=== PATIENT | female | born 1985 | race Caucasian/White ===

== ENCOUNTER 2022-01-19 07:11 | Observation (INO) ==
[2022-01-19] MEDS ORDERED: ONDANSETRON INJ 2 MG/ML 2 ML VIAL IV STA (07:28)
[2022-01-19] MEDS ORDERED: HYDROmorphone INJ 0.5 MG/0.5 ML SYR IV STA (07:28)
[2022-01-19] MEDS ORDERED: FAMOTIDINE 20MG IV PUSH 20 MG/5 ML SYR IV STA (07:34)
--- NOTE | 2022-01-19 07:34 | Emergency Department Note ---
History of Present Illness General Chief complaint: Flank Pain Stated complaint: BURNING PAIN IN RIGHT SIDE Time Seen by Provider: 01/19/22 07:18 History of Present Illness Maximum Pain Intensity: 5 36-year-old female who presents to the emergency department with her for evaluation of persistent and worsening right upper quadrant pain. The patient was seen in the emergency department last night with similar symptoms. The patient reports that she was discharged around 1 AM, and had onset of severe pain around 5 AM this morning. She reports nausea without vomiting. She rep orts that the pain radiates into the right shoulder. The pain is slightly worsened with deep breathing. She denies chest pain, shortness of breath, fevers or chills. She denies any pain radiating into the lower or left abdomen region. The patient rates her discomfort a 5 out of 10. The patient has had the symptoms now for the past several weeks, which seems to be triggered with spicy and fatty foods. May just moved back to the [facility] from [facility] as her is in the [employer]. The family will be moving to [place] for his next assignment in 2 days (01/21/2022). Home Medications Medication Instructions Recorded Confirmed Type acetaminophen 500 mg tablet 1,000 mg PO Q6H PRN 01/19/22 01/19/22 History famotidine 20 mg tablet (Pepcid) 0 mg PO DAILY 01/19/22 01/19/22 History pantoprazole 40 mg tablet,delayed 40 mg PO DAILY 28 Days #28 tab 01/19/22 01/19/22 Rx release (Protonix) simethicone 125 mg capsule (Gas-X 0 mg PO BID 01/19/22 01/19/22 History Extra Strength) Allergies Allergy/AdvReac Type Severity Reaction Status Date / Time No Known Allergies Allergy Unverified 01/19/22 09:52 Past Med/Surg History Medical History Epigastric abdominal pain Miscarriage within last 12 months Surgical History No significant past surgical history Family History Brother Insulinoma Other Coronary heart disease Diabetes Dyslipidemia Hypertension Kidney disease Social History Smoking Status: Never smoker Hx Substance Use: No Preferred Language: Macedonian Communication Ability: Effective marital status: Current Living Situation: Spouse Feels Safe at Home: Yes Review of Systems 10 system review was performed and was negative except for pertinent positives and negatives as indicated in history of present illness Physical Exam Vital Signs Vital Signs - 24 hr 01/19/22 07:11 01/19/22 07:30 01/19/22 07:58 Temperature 36.3 C L Temperature Source Temporal Artery Scan Pulse Rate 77 Pulse Rate [Apical] 65 Pulse Rhythm Regular Pulse Rhythm [Apical] Regular Respiratory Rate 18 15 Respiratory Effort / Characteristics Non-Labored Spontaneous Respiratory Depth Normal Blood Pressure 121/84 Blood Pressure [Right Arm] 113/67 Blood Pressure Mean 96 Blood Pressure Mean [Right Arm] 82 Blood Pressure Position [Right Arm] Pulse Oximetry 98 97 97 Oxygen Delivery Method Room Air Room Air Sepsis Recent Fever Within 48 Hours No Sepsis New/Unexplained Change in Mental Status No Sepsis Action Taken by Nursing No Action Required 01/19/22 09:00 01/19/22 11:00 Temperature Temperature Source Pulse Rate Pulse Rate [Apical] 46 L 58 L Pulse Rhythm Pulse Rhythm [Apical] Regular Respiratory Rate 12 20 Respiratory Effort / Characteristics Non-Labored Spontaneous Non-Labored Respiratory Depth Normal Normal Blood Pressure Blood Pressure [Right Arm] 104/64 108/68 Blood Pressure Mean Blood Pressure Mean [Right Arm] 77 81 Blood Pressure Position [Right Arm] Lying Pulse Oximetry 96 100 Oxygen Delivery Method Room Air Room Air Sepsis Recent Fever Within 48 Hours Sepsis New/Unexplained Change in Mental Status Sepsis Action Taken by Nursing CONSTITUTIONAL: Healthy and well nourished. Patient appears in moderate discomfort. HEENT: No scleral icterus or conjunctival injection/pallor. NECK: Full active range of motion without discomfort. LYMPHATICS: No cervical chain adenopathy. RESPIRATORY: Clear to auscultation bilaterally with no wheezing, crackles, rhonchi or stridor. CARDIOVASCULAR: Regular rate and rhythm with no murmurs, rubs or gallops. GASTROINTESTINAL: Bowel sounds present in all quadrants. Patient has right upper quadrant tenderness to palpation with positive De La Cruz sign. Negative McBurney's point tenderness. Negative CVA tenderness. No abdominal rigidity, guarding or rebound. MUSCULOSKELETAL: Full range of motion of all joints without discomfort. INTEGUMENTARY: No rash or other significant dermatologic conditions noted. HEMATOLOGIC: No ecchymosis or petechiae. PSYCHIATRIC: Positive affect. NEUROLOGIC: No focal neurologic deficits noted. Course Course Patient history and physical exam were performed. Nurses notes were reviewed. Vital signs were reviewed and were normal. I also reviewed documentation, labs and [facility] imaging findings from last night, with cholelithiasis noted, and without evidence for acute cholecystitis, common bile duct dilatation or pericholecystic fluid. CT with IV contrast of the abdomen and pelvis showed constipation without any other acute findings. I also reviewed our local radiologist reading which was completed at the time of my examination of the patient, again confirming cholelithiasis without convincing evidence for cholecystitis. Our local radiologist also read the CT scan, showing no evidence for bowel obstruction, appendicitis, diverticulitis, abdominal free air or CT evidence of acute cholecystitis. Moderate fecal retention is noted. IV access was established, and labs were drawn. The patient was hydrated with a liter of normal saline, and administered IV Dilaudid, Zofran and Pepcid. Review of labs shows an elevated D-dimer of 1550. Patient is noted to have a leukopenia without evidence for left shift or bandemia. CMP shows progressively worsening elevation of the patient's total bilirubin, AST, ALT, alkaline phosphatase and lipase of 1817. Because of the patient's elevated D-dimer, I did recommend chest CT angiography, which was performed and was negative for acute cardiopulmonary findings. Some pulmonary nodules, as well as a left medial breast mass is noted. Repeat ultrasound of the right upper quadrant still does not show evidence for gallbladder wall thickening,, bile duct dil atation or pericholecystic fluid. Findings were discussed with the patient, including a possibility of a choledocholithiasis. I did recommend discussing the case further with our back filler operator on-call, with probable need for MRCP/ERCP and surgical evaluation. The patient still had adequate pain relief, and refused any analgesics. I then discussed the case further with [facility] gastroenterology (JOSEPH Ruiz) who has recommended ordering an MRCP. We were actually able to get that MRCP rather quickly, with no evidence for choledocholithiasis or other acute findings. I suspect that the patient passed a gallstone. At this point, the case was further discussed with [facility] service for further admission and management for acute pancreatitis. Explained to the patient, who was requesting that her gallbladder be removed while in [place], that the gallbladder likely would not be surgically removed with her current pancreatitis. She did voiced understanding. It is noted that the patient did have a negative COVID-19 test last evening. Case was also discussed with Dr. Rao, ED attending physician, who agrees with work-up and hospitalist management. Administered Medications Lactated Ringer's (Lr) 1,000 mls @ 115 mls/hr IV .[id number] NATASHA Stop: 02/18/22 11:44 Last Admin: 01/19/22 12:25 Dose: 115 mls/hr Documented by: [id number] Morphine Sulfate (Morphine Sulfate 4 Mg/Ml 1 Ml Carp\Vial) 3 mg IV Q4 PRN PRN Reason: Pain Stop: 02/02/22 12:31 Last Admin: 01/19/22 13:20 Dose: 3 mg Documented by: [id number] Discontinued Medications Hydromorphone HCl (Hydromorphone Inj 0.5 Mg/0.5 Ml Syr) 0.5 mg IV NOW STA Stop: 01/19/22 07:29 Last Admin: 01/19/22 07:49 Dose: 0.5 mg Documented by: [id number] Famotidine (Pepcid 20mg Iv Push) 20 mg in 5 mls @ 2.5 mls/min IV NOW STA Stop: 01/19/22 07:35 Last Admin: 01/19/22 07:47 Dose: 2.5 mls/min Documented by: [id number] Ioversol (Optiray 320 125ml) 120 ml IV ONCE ONE Stop: 01/19/22 10:00 Last Admin: 01/19/22 09:59 Dose: 120 ml Documented by: [id number] Ondansetron HCl (Ondansetron Inj 2 Mg/Ml 2 Ml Vial) 4 mg IV NOW STA Stop: 01/19/22 07:29 Last Admin: 01/19/22 07:46 Dose: 4 mg Documented by: [id number] Medical Decision Making Medical Records Attestation: I reviewed the patient's medical records. Home Medications Current Medication List: was personally reviewed by me Laboratory Data Attestation: I reviewed the patient's lab results. Result diagrams: 01/19/22 07:35 01/19/22 07:35 Lab Results 05/31/22 05/31/22 05/31/22 Range/Units 07:35 07:35 07:35 WBC 4.51 L (4.8-10.8) K/uL RBC 4.17 L (4.2-5.4) M/uL Hgb 12.9 (12.0-16.0) g/dL Hct 38.3 (37-47) % MCV 91.8 (80-100) fL MCH 30.9 (25-34) pg MCHC 33.7 (32-36) g/dL RDW Std Deviation 40.4 (36.4-46.3) fL RDW Coeff of Rasheed 11.9 (11.5-14.5) % Plt Count 198 (130-400) K/uL MPV 10.8 H (7.4-10.4) fL Immature Gran % (Auto) 0.2 % Neut % (Auto) 69.9 % Lymph % (Auto) 22.4 % Adams % (Auto) 6.0 % Eos % (Auto) 1.3 % Baso % (Auto) 0.2 % Neut # (Auto) 3.15 (1.4-6.5) K/uL Lymph # (Auto) 1.01 L (1.2-3.4) K/uL Adams # (Auto) 0.27 (0.11-0.59) K/uL Eos # (Auto) 0.06 (0-0.5) K/uL Baso # (Auto) 0.01 (0-0.2) K/uL Immature Gran # (Auto) 0.01 (0.00-0.02) K/uL D-Dimer 1550 H* (0-500) ug/L FEU Sodium 138 (136-145) mmol/L Potassium 3.8 (3.5-5.1) mmol/L Chloride 105 (98-107) mmol/L Carbon Dioxide 25 (21-32) mmol/L Anion Gap 8 (3-11) BUN 12 (6-23) mg/dl Creatinine 0.83 (0.6-1.2) mg/dl Est Cr Clr Drug Dosing 95.4 ml/min Est GFR ( Amer) 105.9 ml/min Est GFR (Non-Af Amer) 91.4 ml/min BUN/Creatinine Ratio 14.5 (10-20) Glucose 88 (70-99(Fasting)) mg/dl Calcium 9.1 (8.5-10.1) mg/dl Total Bilirubin 1.2 H D (0.2-1.0) mg/dl AST 186 H (13-39) U/L ALT 83 H (7-52) U/L Alkaline Phosphatase 131 H (34-104) U/L Troponin I High Sens < 2.3 (0-14) pg/ml Total Protein 6.8 (6.0-8.3) gm/dl Albumin 4.2 (3.4-5.0) gm/dl Globulin 2.6 (2.5-4.0) gm/dl Albumin/Globulin Ratio 1.6 (0.9-2) Lipase 1817 H (11-82) U/L Urine Color Urine Appearance (Clear) Urine pH (4.5-7.5) Ur Specific [place] (1.000-1.030) Urine Protein (Negative) Urine Glucose (UA) (Negative) Urine Ketones (Negative) Urine Blood (Negative) Urine Nitrite (Negative) Urine Bilirubin (Negative) Urine Urobilinogen (Negative) Ur Leukocyte Esterase (Negative) 01/19/22 Range/Units 10:14 WBC (4.8-10.8) K/uL RBC (4.2-5.4) M/uL Hgb (12.0-16.0) g/dL Hct (37-47) % MCV (80-100) fL MCH (25-34) pg MCHC (32-36) g/dL RDW Std Deviation (36.4-46.3) fL RDW Coeff of Rasehed (11.5-14.5) % Plt Count (130-400) K/uL MPV (7.4-10.4) fL Immature Gran % (Auto) % Neut % (Auto) % Lymph % (Auto) % Adams % (Auto) % Eos % (Auto) % Baso % (Auto) % Neut # (Auto) (1.4-6.5) K/uL Lymph # (Auto) (1.2-3.4) K/uL Adams # (Auto) (0.11-0.59) K/uL Eos # (Auto) (0-0.5) K/uL Baso # (Auto) (0-0.2) K/uL Immature Gran # (Auto) (0.00-0.02) K/uL D-Dimer (0-500) ug/L FEU Sodium (136-145) mmol/L Potassium (3.5-5.1) mmol/L Chloride (98-107) mmol/L Carbon Dioxide (21-32) mmol/L Anion Gap (3-11) BUN (6-23) mg/dl Creatinine (0.6-1.2) mg/dl Est Cr Clr Drug Dosing ml/min Est GFR ( Amer) ml/min Est GFR (Non-Af Amer) ml/min BUN/Creatinine Ratio (10-20) Glucose (70-99(Fasting)) mg/dl Calcium (8.5-10.1) mg/dl Total Bilirubin (0.2-1.0) mg/dl AST (13-39) U/L ALT (7-52) U/L Alkaline Phosphatase (34-104) U/L Troponin I High Sens (0-14) pg/ml Total Protein (6.0-8.3) gm/dl Albumin (3.4-5.0) gm/dl Globulin (2.5-4.0) gm/dl Albumin/Globulin Ratio (0.9-2) Lipase (11-82) U/L Urine Color Yellow Urine Appearance Clear (Clear) Urine pH 6.5 (4.5-7.5) Ur Specific [place] > 1.045 H (1.000-1.030) Urine Protein Negative (Negative) Urine Glucose (UA) Negative (Negative) Urine Ketones Negative (Negative) Urine Blood Negative (Negative) Urine Nitrite Negative (Negative) Urine Bilirubin Negative (Negative) Urine Urobilinogen Negative (Negative) Ur Leukocyte Esterase Negative (Negative) Imaging Data Attestation: I personally reviewed and interpreted this imaging study as follows: My Impression: My interpretation of reportable chest x-ray does not show any consolidations, pneumothorax or cardiac prominence. Gallbladder ultrasound shows cholelithiasis without evidence for collateral thickening, pericholecystic fluid or, bile duct dilatation. CT angiography of the chest was negative for pulmonary embolus, pneumonia, pneumothorax or other concerning findings. A left medial breast mass is noted, as well as multiple additional small pulmonary nodules of doubtful significance. MRCP did not show evidence for choledocholithiasis or other concerning findings. Radiologist reports were also reviewed. Radiologist's Impression: Gallbladder Ultrasound 01/19/22 07:34 ABDOMINAL ULTRASOUND, RIGHT UPPER QUADRANT HISTORY: Worsening RUQ pain. COMPARISON: Abdominal ultrasound 01/18/2022. FINDINGS: Pancreas: The pancreas demonstrates a normal echotexture. Liver: Unremarkable. Gallbladder: Multiple small gallstones. No gallbladder wall thickening. CBD: 3 mm. Right kidney: No hydronephrosis. IMPRESSION: 1. Cholelithiasis. No gallbladder wall thickening. 2. Normal liver. ACT 112: Negative or not required by law. Electronically signed by: Foreign Sainz M.D. 01/19/2022 8:52 AM Chest X-Ray 01/19/22 07:41 XR chest 1V portable CLINICAL HISTORY: RUQ abd pain radiating to R shoulder TECHNIQUE: Single frontal radiograph of the chest was obtained. Comparison: Comparison is made to chest radiograph 01/18/2022 FINDINGS: No lines and tubes are seen. The cardiomediastinal silhouette is normal. The lungs are clear. No evidence of pleural effusion or pneumothorax. IMPRESSION: No acute chest disease. ACT 112: Negative or not required by law. Electronically signed by: Kirk Arreola M.D. 01/19/2022 8:03 AM Chest CTA 01/19/22 08:45 CT angio chest PE protocol CT DOSE: 496.40 mGycm HISTORY: 36 years-old Female with PE. Acute right-sided chest pain TECHNIQUE: Multiple CTA images of the chest were obtained after the intravenous administration of 120 ml Optiray. Coronal and sagittal MIPS were obtained from the axial data set and were submitted for review. All measurements were obtained according to NASCET criteria. A dose lowering technique was utilized adhering to the principles of ALARA. COMPARISON: Chest radiograph of same day FINDINGS: CTA: Subsegmental pulmonary arterial branches are not well evaluated secondary to contrast bolus timing. 4 vessel morphology of the thoracic aortic arch. No thoracic aortic aneurysm or dissection.Heart size is normal. CT CHEST: No thyroid nodule. No lymphadenopathy. There is no pneumothorax, pleural effusio n, airspace consolidation or overt pulmonary edema. 2 mm nodule of the left upper lobe, image 228. 3 mm fissural nodule of the left lung on image 193. 3 mm nodule of the left lower lobe, image 152. There are no suspicious pulmonary nodules or masses identified. Fissural nodules of the right middle lobe measure up to 4 mm suggestive of benign lymph nodes. The central airways are patent. No acute process of the imaged upper abdomen. 1.3 cm asymmetry within the medial left breast, image 140. The bones appear intact. No acute fracture. IMPRESSION: 1. No acute intrathoracic abnormality. No pulmonary emboli. 2. Low suspicion bilateral solid pulmonary nodules measure up to 4 mm. 3. 1.3 cm asymmetry of the medial left breast. This could be correlated with mammogram ACT 112: Negative or not required by law. The above report was generated using voice recognition software. It may contain grammatical, syntax or spelling errors. Electronically signed by: Naveed Antoine M.D. 01/19/2022 10:26 AM Cholangiopancreatography MRI 01/19/22 10:45 MR MRCP CLINICAL HISTORY: Choledocholithiasis TECHNIQUE: Multiplanar multisequence MR images of the abdomen were obtained, as per MRCP protocol. . COMPARISON: None available at the time of this dictation. FINDINGS: Lower chest: No acute abnormality Liver: Unremarkable. No focal lesions are seen. Gallbladder and biliary tree: No calcified gallstones. Normal caliber wall. No intra- or extrahepatic biliary ductal dilation. Pancreas: Unremarkable, no focal lesions. Spleen: Unremarkable. Adrenals: Unremarkable. Kidneys and ureters: Unremarkable. Bowel: Unremarkable. Lymph nodes Retroperitoneal: Unremarkable. Mesenteric: Unremarkable. Peritoneum: Normal Vessels: Unremarkable. Abdominal wall: Unremarkable. Bones: Unremarkable. IMPRESSION: No evidence of acute abnormality. In particular, no evidence of choledocholithiasis. ACT 112: Negative or not required by law. Electronically signed by: Kirk Arreola M.D. 01/19/2022 12:30 PM Blood Pressure Blood Pressure Findings: Normal blood pressure MDM Narrative She presented to the emergency department with complaint of progressively worsening right upper quadrant pain radiating into the right shoulder. The patient was in the emergency department last evening, with ultrasound showing multiple gallstones, and no evidence for cholecystitis. The patient reports this morning with progressively worsening pain. The patient does have elevated labs, including total bilirubin, LFTs, alkaline phosphatase and lipase. With additional work-up provided, I do suspect that the patient did pass a gallstone, with choledocholithiasis likely cause for her worsening pain and acute pancreatitis. At this point, patient will likely need a few days for treatment of her pancreatitis. The patient will also have GI consultation while admitted, and likely will require further outpatient cholecystectomy due to cholelithiasis. Additional work-up is not suggestive of pulmonary embolus, myocardial infarction, pneumothorax, bowel obstruction or other acute intra- abdominal etiologies. Impression & Plan Choledocholithiasis, Continuous right upper quadrant pain, Breast mass, left, Pancreatitis due to biliary obstruction Discharge Plan Visit Data Chief Complaint: Flank Pain Stated Complaint: BURNING PAIN IN RIGHT SIDE ED Provider: Cameron Rao ED Midlevel Provider: Chavo Murphy Discharge Problem: Choledocholithiasis, Continuous right upper quadrant pain, Breast mass, left, Pancreatitis due to biliary obstruction Patient Disposition: Admitted As Inpatient Discharge Instructions Interventions: ED Discharge Assessment Last Done: 01/19/22 12:24 Discharge Problem: Breast mass, left Qualifiers: Breast mass location: unspecified quadrant Qualified Code(s): N63.20 - Unspecified lump in the left breast, unspecified quadrant Pancreatitis due to biliary obstruction Qualifiers: Chronicity: acute Acute pancreatitis complication: no infection or necrosis Qualified Code(s): K85.10 - Biliary acute pancreatitis without necrosis or infection
[2022-01-19 07:57] LABS: Basophils # (auto) 0.01 K/uL (0-0.2); Basophils % (auto) 0.2 %; Eosinophils # (auto) 0.06 K/uL (0-0.5); Eosinophils % (auto) 1.3 %; Hematocrit (blood only) 38.3 % (37-47); Hemoglobin 12.9 g/dL (12.0-16.0); Immature Granulocytes # (auto) 0.01 K/uL (0.00-0.02); Immature Granulocytes % (auto) 0.2 %; Lymphocytes # (auto) 1.01 K/uL (1.2-3.4); Lymphocytes % (auto) 22.4 %; Mean Corpuscular Hemoglobin 30.9 pg (25-34); Mean Corpuscular Hgb Conc 33.7 g/dL (32-36); Mean Corpuscular Volume 91.8 fL (80-100); Mean Platelet Volume 10.8 fL (7.4-10.4); Monocytes # (auto) 0.27 K/uL (0.11-0.59); Neutrophils # (auto) 3.15 K/uL (1.4-6.5); Neutrophils % (auto) 69.9 %; Platelet Count 198 K/uL (130-400); RDW Coefficient of Variation 11.9 % (11.5-14.5); RDW Standard Deviation 40.4 fL (36.4-46.3); Red Blood Count 4.17 M/uL (4.2-5.4); White Blood Count 4.51 K/uL (4.8-10.8)
--- NOTE | 2022-01-19 08:04 | XRay Report ---
XR chest 1V portable CLINICAL HISTORY: RUQ abd pain radiating to R shoulder TECHNIQUE: Single frontal radiograph of the chest was obtained. Comparison: Comparison is made to chest radiograph 01/18/2022 FINDINGS: No lines and tubes are seen. The cardiomediastinal silhouette is normal. The lungs are clear. No evid ence of pleural effusion or pneumothorax. IMPRESSION: No acute chest disease. ACT 112: Negative or not required by law. Electronically signed by: Kirk Arreola M.D. 01/19/2022 8:03 AM
[2022-01-19 08:17] LABS: D Dimer 1550 ug/L FEU (0-500)
[2022-01-19 08:23] LABS: Troponin I High Sensitivity < 2.3 pg/ml (0-14)
--- NOTE | 2022-01-19 08:53 | Ultrasound Report ---
ABDOMINAL ULTRASOUND, RIGHT UPPER QUADRANT HISTORY: Worsening RUQ pain. COMPARISON: Abdominal ultrasound 01/18/2022. FINDINGS: Pancreas: The pancreas demonstrates a normal echotexture. Liver: Unremarkable. Gallbladder: Multiple small gallstones. No gallbladder wall thickening. CBD: 3 mm. Right kidney: No hydronephrosis. IMPRESSION: 1. Cholelithiasis. No gallbladder wall thickening. 2. Normal liver. ACT 112: Negative or not required by law. Electronically signed by: Foreign Sainz M.D. 01/19/2022 8:52 AM
--- NOTE | 2022-01-19 08:56 | Electrocardiogram Report ---
Test Reason : Blood Pressure : / mmHG Vent. Rate : 062 BPM Atrial Rate : 062 BPM P-R Int : 184 ms QRS Dur : 090 ms QT Int : 430 ms P-R-T Axes : 069 082 061 degrees QTc Int : 436 ms Normal sinus rhythm Left atrial enlargement Incomplete right bundle branch block Low voltage QRS Borderline ECG No previous ECGs available Confirmed by Liu Leung ([id number]) on 01/19/2022 8:56:18 AM Referred By: REFERRED SELF Confirmed By:Liu Leung
[2022-01-19 09:29] LABS: Alanine Aminotransferase 83 U/L (7-52); Albumin Globulin Ratio 1.6 (0.9-2); Albumin Level 4.2 gm/dl (3.4-5.0); Alkaline Phosphatase 131 U/L (34-104); Anion Gap 8 (3-11); Aspartate Aminotransferase 186 U/L (13-39); BUN Creatinine Ratio 14.5 (10-20); Bilirubin,Total 1.2 mg/dl (0.2-1.0); Blood Urea Nitrogen 12 mg/dl (6-23); Calcium 9.1 mg/dl (8.5-10.1); Carbon Dioxide 25 mmol/L (21-32); Chloride 105 mmol/L (98-107); Creatinine Clr Calc Pharmacy 95.4 ml/min; Est GFR (African American) 105.9 ml/min; Est GFR (Non-African American) 91.4 ml/min; Globulin 2.6 gm/dl (2.5-4.0); Glucose 88 mg/dl (70-99(Fasting)); Potassium 3.8 mmol/L (3.5-5.1); Sodium 138 mmol/L (136-145); Total Protein 6.8 gm/dl (6.0-8.3)
[2022-01-19 09:49] LABS: Lipase 1817 U/L (11-82)
[2022-01-19] MEDS ORDERED: OPTIRAY 320 125ml IV ONE (09:59)
[2022-01-19 10:27] LABS: Appearance Urine Clear (Clear); Bilirubin Urine Negative (Negative); Blood Urine Negative (Negative); Color Urine Yellow; Glucose Urine UA Negative (Negative); Ketones Urine Negative (Negative); Leukocyte Esterase Urine Negative (Negative); Nitrite Urine Negative (Negative); Protein Urine Negative (Negative); Specific Gravity Urine > 1.045 (1.000-1.030); Urobilinogen Urine Negative (Negative); pH Urine 6.5 (4.5-7.5)
--- NOTE | 2022-01-19 10:27 | CT Scan Report ---
CT angio chest PE protocol CT DOSE: 496.40 mGycm HISTORY: 36 years-old Female with PE. Acute right-sided chest pain TECHNIQUE: Multiple CTA images of the chest were obtained after the intravenous administration of 120 ml Optiray. Coronal and sagittal MIPS were obtained from the axial data set and were submitted for review. All measurements were obtained according to NASCET criteria. A dose lowering technique was u tilized adhering to the principles of ALARA. COMPARISON: Chest radiograph of same day FINDINGS: CTA: Subsegmental pulmonary arterial branches are not well evaluated secondary to contrast bolus timing. 4 vessel morphology of the thoracic aortic arch. No thoracic aortic aneurysm or dissection.Heart size is normal. CT CHEST: No thyroid nodule. No lymphadenopathy. There is no pneumothorax, pleural effusion, airspace consolida tion or overt pulmonary edema. 2 mm nodule of the left upper lobe, image 228. 3 mm fissural nodule of the left lung on image 193. 3 mm nodule of the left lower lobe, image 152. There are no suspicious p ulmonary nodules or masses identified. Fissural nodules of the right middle lobe measure up to 4 mm s uggestive of benign lymph nodes. The central airways are patent. No acute process of the imaged upper abdomen. 1.3 cm asymmetry within the medial left breast, image 1 40. The bones appear intact. No acute fracture. IMPRESSION: 1. No acute intrathoracic abnormality. No pulmonary emboli. 2. Low suspicion bilateral solid pulmonary nodules measure up to 4 mm. 3. 1.3 cm asymmetry of the medial left breast. This could be correlated with mammogram ACT 112: Negative or not required by law. The above report was generated using voice recognition software. It may contain grammatical, syntax o r spelling errors. Electronically signed by: Naveed Antoine M.D. 01/19/2022 10:26 AM
--- NOTE | 2022-01-19 11:50 | History & Physical Report ---
Date of Service January 19, 2022 Assessment & Plan (1) Choledocholithiasis: Plan: Acute with worsening of LFTs and lipase within past 24 hours - evidence of gallstones noted on Ultrasound without gallbladder thickening- liver appears normal - Pancrease noted on ultrasound with normal echotexture- currently with elevated lipase and pain with n/v secondary to gallstone - Will keep NPO- MRCP already ordered - pending- as above- negative for gallstones likely representing passing of these now resulting with pancreatitis - GI consultation placed for evaluation for ERCP if stones present - LR at 115ml per hour - GS consulted for following and evaluation for choleycystectomy (2) Pancreatitis: Plan: Elevated lipase, right upper and epigastric abdominal pain with nausea and vomiting - BISAP score of 1 - normal echotexture interpreted on Ultrasound - MRCP pending - Secondary to gallstones likely - NPO- if feeling better in afternoon consider clears if no surgical procedures definite - LR at 115ml/hour- adjust based on urine output and hemodynamics as per AGA guidelines will return IVF to 150ml/hr - GI consulted - appreciate assistance (3) Breast mass, left: Plan: Incidentally noted-1.3 cm asymmetry of the medial left breast. This could be correlated with mammogram - Follow up with PCP at new destination for mammography (4) Nausea & vomiting: Plan: Secondary to # 1 - Continue Protonix 40mg IV BID (5) Abnormal chest CT: Plan: Low suspicion bilateral solid pulmonary nodules measure up to 4 mm. - non smoker - follow up recommended with PCP History of Present Illness Primary Care Provider: NO PCP 36 YOF with medical history of: , miscarriage. 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 Patient comes to the EMD today for continued nausea/vomiting and abdominal pain. Patient was evaluated in the EMD on 01/18/22 - Ct scan of abdomen and pelvis noted gallstones. She presents again with epigastric and right sided abdominal pain. Without fevers or chills since last week. Sitting with legs up as posit ion of comfort. Patient states that this originally started while she was with nausea,vomiting and abdominal pain, she later had miscarriage. This also occurred ~ 3 weeks ago when they were getting ready to leave [facility], [place]. She states that this comes and goes and gets better after she does not eat for a couple days. Yesterday she was feeling better and went to [facility] where she had a chicken burrito bowel. After dinner she had onset of epigastric abdominal pain followed by n/v as above. Will obtain MRCP and Gastroenterology consulted. Patient will be kept NPO for evaluation for ERCP, as with her elevation of lipase and epigastric pain consistent with gallstone pancreatitis at this time. Patient has had anesthesia previously without any complications. COVID test on admission is: NEGATIVE 01/18/22 Allergies Allergy/AdvReac Type Severity Reaction Status Date / Time No Known Allergies Allergy Unverified 01/19/22 09:52 Home Medications Medication Instructions Recorded Confirmed Type acetaminophen 500 mg tablet 1,000 mg PO Q6H PRN 01/19/22 01/19/22 History famotidine 20 mg tablet (Pepcid) 0 mg PO DAILY 01/19/22 01/19/22 History pantoprazole 40 mg tablet,delayed 40 mg PO DAILY 28 Days #28 tab 01/19/22 01/19/22 Rx release (Protonix) simethicone 125 mg capsule (Gas-X 0 mg PO BID 01/19/22 01/19/22 History Extra Strength) Past Med/Surg History Medical History Epigastric abdominal pain Miscarriage within last 12 months Surgical History No significant past surgical history Family History Brother Insulinoma Other Coronary heart disease Diabetes Dyslipidemia Hypertension Kidney disease Social History Smoking Status: Never smoker Hx Substance Use: No Preferred Language: [place] African Communication Ability: Effective marital status: Current Living Situation: Spouse Feels Safe at Home: Yes Review of Systems Review of Systems: REVIEW OF SYSTEMS: Constitutional: (+) fever, sweats or chills- resloved Eyes: No diplopia, no worsening or blurred vision ENT: normal hearing, no trouble swallowing Respiratory: No cough, sputum, dyspnea at rest or on exertion Cardiovascular: No chest pain, tightness or palpitations Abdomen: (+) pain, nausea, vomiting, diarrhea NO constipation Musculoskeletal: No joint pain, calf pain, swelling Neurologic: No weakness, numbness/tingling, or balance problems Psychiatric: No anxiety or depression Skin: No rash or itch Physical Exam Physical Exam: PHYSICAL EXAM: General: awake, alert, no apparent distress Head: Normocephalic, atraumatic ENT: PERRL, EOMI, no pharyngeal exudate, mucous membranes moist Neuro: AAO x 3, speech clear and appropriate, strength intact bilaterally 5/5, sensation intact and equal all extremities and dermatomes, no pronator drift Chest: equal rise and fall of the chest, no accessory muscle use, no heaves or thrills, Clear to auscultation, on room air, Cardiac: Regular rate and rhythm, telemetry reviewed, skin warm dry, cap refill <3 seconds, peripheral pulses +2 no JVD, no murmur, no edema GI: NABS x 4 quadrants, soft, tender to palpation right epigastric and mid epigastric pain, no rebound, guarding : Spontaneously voiding, no pain, no CVA tenderness, Extremities: Normal inspection, no peripheral edema or erythema, calfs nontender to palpation Psych: Normal mood and affect Skin: no rash or erythema Results & Data Results & Data ([facility]) Vital Signs (Past 12 Hours) Vital Signs Temp Pulse Pulse Resp BP BP Pulse Ox 01/19/22 11:00 58 L 20 108/68 100 01/19/22 09:00 46 L 12 104/64 96 01/19/22 07:58 65 15 113/67 97 01/19/22 07:30 97 01/19/22 07:11 36.3 C L 77 18 121/84 98 Laboratory Results Abnormal lab results 01/19/22 01/19/22 01/19/22 Range/Units 07:35 07:35 07:35 WBC 4.51 L (4.8-10.8) K/uL RBC 4.17 L (4.2-5.4) M/uL MPV 10.8 H (7.4-10.4) fL Lymph # (Auto) 1.01 L (1.2-3.4) K/uL D-Dimer 1550 H* (0-500) ug/L FEU Total Bilirubin 1.2 H D (0.2-1.0) mg/dl AST 186 H (13-39) U/L ALT 83 H (7-52) U/L Alkaline Phosphatase 131 H (34-104) U/L Lipase 1817 H (11-82) U/L Ur Specific [place] (1.000-1.030) 01/19/22 Range/Units 10:14 WBC (4.8-10.8) K/uL RBC (4.2-5.4) M/uL MPV (7.4-10.4) fL Lymph # (Auto) (1.2-3.4) K/uL D-Dimer (0-500) ug/L FEU Total Bilirubin (0.2-1.0) mg/dl AST (13-39) U/L ALT (7-52) U/L Alkaline Phosphatase (34-104) U/L Lipase (11-82) U/L Ur Specific [place] > 1.045 H (1.000-1.030) Diagnostic Findings Gallbladder Ultrasound 01/19/22 07:34 ABDOMINAL ULTRASOUND, RIGHT UPPER QUADRANT HISTORY: Worsening RUQ pain. COMPARISON: Abdominal ultrasound 01/18/2022. FINDINGS: Pancreas: The pancreas demonstrates a normal echotexture. Liver: Unremarkable. Gallbladder: Multiple small gallstones. No gallbladder wall thickening. CBD: 3 mm. Right kidney: No hydronephrosis. IMPRESSION: 1. Cholelithiasis. No gallbladder wall thickening. 2. Normal liver. ACT 112: Negative or not required by law. Electronically signed by: Foreign Sainz M.D. 01/19/2022 8:52 AM Chest X-Ray 01/19/22 07:41 XR chest 1V portable CLINICAL HISTORY: RUQ abd pain radiating to R shoulder TECHNIQUE: Single frontal radiograph of the chest was obtained. Comparison: Comparison is made to chest radiograph 01/18/2022 FINDINGS: No lines and tubes are seen. The cardiomediastinal silhouette is normal. The lungs are clear. No evidence of pleural effusion or pneumothorax. IMPRESSION: No acute chest disease. ACT 112: Negative or not required by law. Electronically signed by: Kirk Arreola M.D. 01/19/2022 8:03 AM Chest CTA 01/19/22 08:45 CT angio chest PE protocol CT DOSE: 496.40 mGycm HISTORY: 36 years-old Female with PE. Acute right-sided chest pain TECHNIQUE: Multiple CTA images of the chest were obtained after the intravenous administration of 120 ml Optiray. Coronal and sagittal MIPS were obtained from the axial data set and were submitted for review. All measurements were obtained according to NASCET criteria. A dose lowering technique was utilized adhering to the principles of ALARA. COMPARISON: Chest radiograph of same day FINDINGS: CTA: Subsegmental pulmonary arterial branches are not well evaluated secondary to contrast bolus timing. 4 vessel morphology of the thoracic aortic arch. No thoracic aortic aneurysm or dissection.Heart size is normal. CT CHEST: No thyroid nodule. No lymphadenopathy. There is no pneumothorax, pleural effusion, airspace consolidation or overt pulmonary edema. 2 mm nodule of the left upper lobe, image 228. 3 mm fissural nodule of the left lung on image 193. 3 mm nodule of the left lower lobe, image 152. There are no suspicious pulmonary nodules or masses identified. Fissural nodules of the right middle lobe measure up to 4 mm suggestive of benign lymph nodes. The central airways are patent. No acute process of the imaged upper abdomen. 1.3 cm asymmetry within the medial left breast, image 140. The bones appear intact. No acute fracture. IMPRESSION: 1. No acute intrathoracic abnormality. No pulmonary emboli. 2. Low suspicion bilateral solid pulmonary nodules measure up to 4 mm. 3. 1.3 cm asymmetry of the medial left breast. This could be correlated with mammogram ACT 112: Negative or not required by law. The above report was generated using voice recognition software. It may contain grammatical, syntax or spelling errors. Electronically signed by: Naveed Antoine M.D. 01/19/2022 10:26 AM MR MRCP CLINICAL HISTORY: Choledocholithiasis TECHNIQUE: Multiplanar multisequence MR images of the abdomen were obtained, as per MRCP protocol. . COMPARISON: None available at the time of this dictation. FINDINGS: Lower chest: No acute abnormality Liver: Unremarkable. No focal lesions are seen. Gallbladder and biliary tree: No calcified gallstones. Normal caliber wall. No intra- or extrahepatic biliary ductal dilation. Pancreas: Unremarkable, no focal lesions. Spleen: Unremarkable. Adrenals: Unremarkable. Kidneys and ureters: Unremarkable. Bowel: Unremarkable. Lymph nodes Retroperitoneal: Unremarkable. Mesenteric: Unremarkable. Peritoneum: Normal Vessels: Unremarkable. Abdominal wall: Unremarkable. Bones: Unremarkable. IMPRESSION: No evidence of acute abnormality. In particular, no evidence of choledocholithiasis. Medications Administered Home Medications acetaminophen 500 mg tablet 1,000 mg PO Q6H PRN 01/19/22 [History Confirmed 01/19/22] famotidine 20 mg tablet (Pepcid) 0 mg PO DAILY 01/19/22 [History Confirmed 01/19/22] pantoprazole 40 mg tablet,delayed release (Protonix) 40 mg PO DAILY 28 Days #28 tab 01/19/22 [Rx Confirmed 01/19/22] simethicone 125 mg capsule (Gas-X Extra Strength) 0 mg PO BID 01/19/22 [History Confirmed 01/19/22] Active Medications Lactated Ringer's (Lr) 1,000 mls @ 115 mls/hr IV .[id number] NATASHA Stop: 02/18/22 11:44 Discontinued Medications Hydromorphone HCl (Hydromorphone Inj 0.5 Mg/0.5 Ml Syr) 0.5 mg IV NOW STA Stop: 01/19/22 07:29 Last Admin: 01/19/22 07:49 Dose: 0.5 mg Documented by: [id number] Famotidine (Pepcid 20mg Iv Push) 20 mg in 5 mls @ 2.5 mls/min IV NOW STA Stop: 01/19/22 07:35 Last Admin: 01/19/22 07:47 Dose: 2.5 mls/min Documented by: [id number] Ioversol (Optiray 320 125ml) 120 ml IV ONCE ONE Stop: 01/19/22 10:00 Last Admin: 01/19/22 09:59 Dose: 120 ml Documented by: [id number] Ondansetron HCl (Ondansetron Inj 2 Mg/Ml 2 Ml Vial) 4 mg IV NOW STA Stop: 01/19/22 07:29 Last Admin: 01/19/22 07:46 Dose: 4 mg Documented by: [id number] Additional Comments: Normal sinus rhythm Left atrial enlargement Incomplete right bundle branch block Low voltage QRS Borderline ECG No previous ECGs available Code Status & VTE Plan Code Status CODE: FULL VTE: SCDS, ambulation VTE Prophylaxis Plan VTE Prophylaxis will be ordered: Yes Supervising Physician Co-Signing Physician Notes RESOURCE [employer]ER Supervision note: I have personally seen and examined the patient and discussed and verified the france points of the history and physical along with the plan with JOSEPH Ferguson with the following exceptions and/or additions: This pt is a 36 yo female with a h/o GERD who is here with epigastric pain, nausea, and was found to have elevated LFTs and gallstones on RUQ US. Denies fevers. History and ROS reviewed as above Vitals reviewed NAD, AAOx3 Anicteric sclerae, EOMI OP clear RRR no mgr CTAB no wcr Abd +BS soft mild +TTP in epigastric region without guarding or rebound Ext no edema, 2+ DP pulses Skin no rashes, warm and dry Labs, Rads reviewed 36 yo female here with cholelithiasis, gallstone pancreatitis, and likely previous choledocholithiasis. MRCP shows no obstructing stones, no acute cholecystitis. No fevers or leuko cytosis, no organ dysfunction. Mild pancreatitis chemically and clinically but none seen on imaging. Continue IVFs but reduce rate back to 115 mL of LR (was increased to 250mL/hr by GI), pain control, follow LFTs in AM. PG Care Time/CCT Total # of Minutes Spent Total Time Spent with Patient: Total time spent is greater than 50% in coordination of care (as documented) at patient's floor/unit and/or counseling patient: Coding Level of Care Code 49148 Initial Inpt Care Lvl 3 Diagnoses Choledocholithiasis K80.50 Breast mass, left N63.20 Breast mass location: unspecified quadrant Nausea & vomiting R11.[address] R93.89 Pancreatitis K85.90 (1) Breast mass, left Breast mass location: unspecified quadrant Qualified Code(s): N63.20 - Unspecified lump in the left breast, unspecified quadrant
[2022-01-19] MEDS: LACTATED RINGER'S 1,000 ML IV SCH ×2 (12:25→20:15)
--- NOTE | 2022-01-19 12:31 | Magnetic Resonance Report ---
MR MRCP CLINICAL HISTORY: Choledocholithiasis TECHNIQUE: Multiplanar multisequence MR images of the abdomen were obtained, as per MRCP protocol. . COMPARISON: None available at the time of this dictation. FINDINGS: Lower chest: No acute abnormality Liver: Unremarkable. No focal lesions are seen. Gallbladder and biliary tree: No calcified gallstones. Normal caliber wall. No intra- or extrahepatic biliary ductal dilation. Pancreas: Unremarkable, no focal lesions. Spleen: Unremarkable. Adrenals: Unremarkable. Kidneys and ureters: Unremarkable. Bowel: Unremarkable. Lymph nodes Retroperitoneal: Unremarkable. Mesenteric: Unremarkable. Peritoneum: Normal Vessels: Unremarkable. Abdominal wall: Unremarkable. Bones: Unremarkable. IMPRESSION: No evidence of acute abnormality. In particular, no evidence of choledocholithiasis. ACT 112: Negative or not required by law. Electronically signed by: Kirk Arreola M.D. 01/19/2022 12:30 PM
[2022-01-19] MEDS ORDERED: ACETAMINOPHEN 1,000 MG/100 ML VIAL IV PRN (12:32)
[2022-01-19] MEDS ORDERED: ONDANSETRON INJ 2 MG/ML 2 ML VIAL IV PRN (12:32)
[2022-01-19] MEDS ORDERED: MoRPHine SULFATE 4 MG/ML 1 ML CARP\\VIAL IV PRN (12:32)
--- NOTE | 2022-01-19 15:03 | Surgery Consultation ---
Date of Consultation January 19, 2022 Assessment & Plan (1) Continuous right upper quadrant pain: (2) Choledocholithiasis: (3) Pancreatitis: 36 year-old female presented to ED with sudden onset of sharp RUQ abdominal pain with associated nausea that began yesterday. Similar episode 3 weeks ago while in [place]. Did not seek medical attention in [place] as she was traveling back home and fear of needing isolation due to [facility] strict COVID laws. No fevers or chills. Imaging consistent with gallstones but no evidence of acute cholecystitis or evidence of choledocholithiasis on MRCP. Labs showing no leukocytosis. T. bili and LFTS slightly elevated this morning compared to prior evaluation in ED last evening. Lipase 1817 this am. Plan: Likely had passage of gallstones vs sludge causing transient biliary obstruction. Her pain has improved with pain medication. Given her circumstance with traveling to [place] in next 2 days, discussed observation and following labs to ensure she does not have continued biliary obstruction/worsening pancreatic enzymes. Also discussed adherence to a strict bland diet and need for close follow-up with surgeon in [place] for discussion of elective cholecystectomy. She is traveling via to [place] then [place] in next few days with 4 children so undergoing surgery during this hospital stay would not be feasible and given that she has no signs of acute cholecystitis on imaging or examination it is reasonable to observe and have close outpatient follow-up in [place]. Patient is agreeable to above plan Continue current medical management follow labs will continue to follow Dr. Sánchez has seen and examined pt, see addendum for further recom mendations/Plan. Supervising Physician Co-Signing Physician Notes I have seen and examined the patient personally and agree with the above assessment and plan. In brief she has mild pancreatitis most likely from a transient choledocholithiasis. She will be admitted to the hospital and we will track her labs. She is moving to [place] in 2 days. I discussed with her the need to stay on a bland diet, as well as the need to have her gallbladder removed as soon as possible. She does not want to have her surgery here right before she moves. As long as she continues to improve, we will discharge her to home, and she will have her gallbladder taken care of when she gets to [place]. We will continue to follow. History of Present Illness Reason for Consultation: Gallstones, RUQ abdominal pain Requesting Physician: JOSEPH Silva Attending Physician: Medina Ward MD History of Present Illness Siri is a 36 year-old female with no significant past medical history who presented to emergency department due to recurrent right upper sided abdominal pain with associated nausea. 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 She states she had a similar attack of severe pain that put her on the floor about 3 weeks ago but she did not want to go to emergency department in [facility] for fear of needing isolation due to COVID precautions. She states pain finally eased up and then suddenly came back again last night. Seems to be in relation to fatty/spicy foods. Had Samoan and Estonian food prior to these two episodes. Associated nausea but no fevers, chills, vomiting. States she will be traveling in the next week to [place], [place], and then [place] for her husbands next station (In [facility]). Has 4 children and traveling via . Had a miscarriage about 6 weeks ago. Currently feeling better now since she had pain medication. No vomiting while in the hospital. No significant past surgical history. Allergies Allergy/AdvReac Type Severity Reaction Status Date / Time No Known Allergies Allergy Unverified 01/19/22 09:52 Home Medications Medication Instructions Recorded Confirmed Type acetaminophen 500 mg tablet 1,000 mg PO Q6H PRN 01/19/22 01/19/22 History famotidine 20 mg tablet (Pepcid) 0 mg PO DAILY 01/19/22 01/19/22 History pantoprazole 40 mg tablet,delayed 40 mg PO DAILY 28 Days #28 tab 01/19/22 01/19/22 Rx release (Protonix) simethicone 125 mg capsule (Gas-X 0 mg PO BID 01/19/22 01/19/22 History Extra Strength) Patient History Medical History Epigastric abdominal pain Miscarriage within last 12 months Surgical History No significant past surgical history Family History Brother Insulinoma Other Coronary heart disease Diabetes Dyslipidemia Hypertension Kidney disease Social History Smoking Status: Never smoker Hx Substance Use: No Preferred Language: Italian Communication Ability: Effective marital status: Current Living Situation: Spouse Feels Safe at Home: Yes Review of Systems Review of Systems: All systems reviewed & are unremarkable except as noted in HPI & below Physical Exam Constitutional: WD/WN, vitals as above no acute distress and not ill appearing Neck: normal visual inspection and trachea midline Respiratory: normal respiratory effort; no respiratory distress, no labored breathing and no retractions Gastrointestinal (Abdomen): Inspection/Auscultation: abdomen normal to inspection; abdomen not distended Percussion/Palpation: + abdomen tender (RUQ) and abdomen soft; no guarding and abdomen not rigid Skin: no rashes, warm and dry no jaundice Psychiatric: A+Ox3, euthymic affect Results & Data ([facility]) Vital Signs (Past 12 Hours) Vital Signs Temp Pulse Pulse Resp BP BP Pulse Ox 01/19/22 13:33 55 L 20 115/97 97 01/19/22 12:39 74 20 154/74 H 98 01/19/22 12:32 74 20 154/74 H 98 01/19/22 12:24 74 14 154/74 H 98 01/19/22 11:00 58 L 20 108/68 100 01/19/22 09:00 46 L 12 104/64 96 01/19/22 07:58 65 15 113/67 97 01/19/22 07:30 97 01/19/22 07:11 36.3 C L 77 18 121/84 98 Pulse Ox 01/19/22 13:33 01/19/22 12:39 01/19/22 12:32 98 01/19/22 12:24 01/19/22 11:00 01/19/22 09:00 01/19/22 07:58 01/19/22 07:30 01/19/22 07:11 Laboratory Results 01/19/22 01/19/22 01/19/22 Range/Units 10:14 07:35 07:35 WBC (4.8-10.8) K/uL RBC (4.2-5.4) M/uL Hgb (12.0-16.0) g/dL Hct (37-47) % MCV (80-100) fL MCH (25-34) pg MCHC (32-36) g/dL RDW Std Deviation (36.4-46.3) fL RDW Coeff of Rasheed (11.5-14.5) % Plt Count (130-400) K/uL MPV (7.4-10.4) fL Immature Gran % (Auto) % Neut % (Auto) % Lymph % (Auto) % [place] % (Auto) % Eos % (Auto) % Baso % (Auto) % Neut # (Auto) (1.4-6.5) K/uL Lymph # (Auto) (1.2-3.4) K/uL [place] # (Auto) (0.11-0.59) K/uL Eos # (Auto) (0-0.5) K/uL Baso # (Auto) (0-0.2) K/uL Immature Gran # (Auto) (0.00-0.02) K/uL D-Dimer 1550 H* (0-500) ug/L FEU Sodium 138 (136-145) mmol/L Potassium 3.8 (3.5-5.1) mmol/L Chloride 105 (98-107) mmol/L Carbon Dioxide 25 (21-32) mmol/L Anion Gap 8 (3-11) BUN 12 (6-23) mg/dl Creatinine 0.83 (0.6-1.2) mg/dl Est Cr Clr Drug Dosing 95.4 ml/min Est GFR ( Amer) 105.9 ml/min Est GFR (Non-Af Amer) 91.4 ml/min BUN/Creatinine Ratio 14.5 (10-20) Glucose 88 (70-99(Fasting)) mg/dl Calcium 9.1 (8.5-10.1) mg/dl Total Bilirubin 1.2 H D (0.2-1.0) mg/dl AST 186 H (13-39) U/L ALT 83 H (7-52) U/L Alkaline Phosphatase 131 H (34-104) U/L Troponin I High Sens < 2.3 (0-14) pg/ml Total Protein 6.8 (6.0-8.3) gm/dl Albumin 4.2 (3.4-5.0) gm/dl Globulin 2.6 (2.5-4.0) gm/dl Albumin/Globulin Ratio 1.6 (0.9-2) Lipase 1817 H (11-82) U/L Urine Color Yellow Urine Appearance Clear (Clear) Urine pH 6.5 (4.5-7.5) Ur Specific [place] > 1.045 H (1.000-1.030) Urine Protein Negative (Negative) Urine Glucose (UA) Negative (Negative) Urine Ketones Negative (Negative) Urine Blood Negative (Negative) Urine Nitrite Negative (Negative) Urine Bilirubin Negative (Negative) Urine Urobilinogen Negative (Negative) Ur Leukocyte Esterase Negative (Negative) 01/19/22 Range/Units 07:35 WBC 4.51 L (4.8-10.8) K/uL RBC 4.17 L (4.2-5.4) M/uL Hgb 12.9 (12.0-16.0) g/dL Hct 38.3 (37-47) % MCV 91.8 (80-100) fL MCH 30.9 (25-34) pg MCHC 33.7 (32-36) g/dL RDW Std Deviation 40.4 (36.4-46.3) fL RDW Coeff of Rasheed 11.9 (11.5-14.5) % Plt Count 198 (130-400) K/uL MPV 10.8 H (7.4-10.4) fL Immature Gran % (Auto) 0.2 % Neut % (Auto) 69.9 % Lymph % (Auto) 22.4 % [place] % (Auto) 6.0 % Eos % (Auto) 1.3 % Baso % (Auto) 0.2 % Neut # (Auto) 3.15 (1.4-6.5) K/uL Lymph # (Auto) 1.01 L (1.2-3.4) K/uL [place] # (Auto) 0.27 (0.11-0.59) K/uL Eos # (Auto) 0.06 (0-0.5) K/uL Baso # (Auto) 0.01 (0-0.2) K/uL Immature Gran # (Auto) 0.01 (0.00-0.02) K/uL D-Dimer (0-500) ug/L FEU Sodium (136-145) mmol/L Potassium (3.5-5.1) mmol/L Chloride (98-107) mmol/L Carbon Dioxide (21-32) mmol/L Anion Gap (3-11) BUN (6-23) mg/dl Creatinine (0.6-1.2) mg/dl Est Cr Clr Drug Dosing ml/min Est GFR ( Amer) ml/min Est GFR (Non-Af Amer) ml/min BUN/Creatinine Ratio (10-20) Glucose (70-99(Fasting)) mg/dl Calcium (8.5-10.1) mg/dl Total Bilirubin (0.2-1.0) mg/dl AST (13-39) U/L ALT (7-52) U/L Alkaline Phosphatase (34-104) U/L Troponin I High Sens (0-14) pg/ml Total Protein (6.0-8.3) gm/dl Albumin (3.4-5.0) gm/dl Globulin (2.5-4.0) gm/dl Albumin/Globulin Ratio (0.9-2) Lipase (11-82) U/L Urine Color Urine Appearance (Clear) Urine pH (4.5-7.5) Ur Specific [place] (1.000-1.030) Urine Protein (Negative) Urine Glucose (UA) (Negative) Urine Ketones (Negative) Urine Blood (Negative) Urine Nitrite (Negative) Urine Bilirubin (Negative) Urine Urobilinogen (Negative) Ur Leukocyte Esterase (Negative) Diagnostic Findings ABDOMINAL ULTRASOUND, RIGHT UPPER QUADRANT HISTORY: Worsening RUQ pain. COMPARISON: Abdominal ultrasound 01/18/2022. FINDINGS: Pancreas: The pancreas demonstrates a normal echotexture. Liver: Unremarkable. Gallbladder: Multiple small gallstones. No gallbladder wall thickening. CBD: 3 mm. Right kidney: No hydronephrosis. IMPRESSION: 1. Cholelithiasis. No gallbladder wall thickening. 2. Normal liver. CT angio chest PE protocol CT DOSE: 496.40 mGycm HISTORY: 36 years-old Female with PE. Acute right-sided chest pain TECHNIQUE: Multiple CTA images of the chest were obtained after the intravenous administration of 120 ml Optiray. Coronal and sagittal MIPS were obtained from the axial data set and were submitted for review. All measurements were obtained according to NASCET criteria. A dose lowering technique was utilized adhering to the principles of ALARA. COMPARISON: Chest radiograph of same day FINDINGS: CTA: Subsegmental pulmonary arterial branches are not well evaluated secondary to contrast bolus timing. 4 vessel morphology of the thoracic aortic arch. No thoracic aortic aneurysm or dissection.Heart size is normal. CT CHEST: No thyroid nodule. No lymphadenopathy. There is no pneumothorax, pleural effusion, airspace consolidation or overt pulmonary edema. 2 mm nodule of the left upper lobe, image 228. 3 mm fissural nodule of the left lung on image 193. 3 mm nodule of the left lower lobe, image 152. There are no suspicious pulmonary nodules or masses identified. Fissural nodules of the right middle lobe measure up to 4 mm suggestive of benign lymph nodes. The central airways are patent. No acute process of the imaged upper abdomen. 1.3 cm asymmetry within the medial left breast, image 140. The bones appear intact. No acute fracture. IMPRESSION: 1. No acute intrathoracic abnormality. No pulmonary emboli. 2. Low suspicion bilateral solid pulmonary nodules measure up to 4 mm. 3. 1.3 cm asymmetry of the medial left breast. This could be correlated with mammogram MR MRCP CLINICAL HISTORY: Choledocholithiasis TECHNIQUE: Multiplanar multisequence MR images of the abdomen were obtained, as per MRCP protocol. . COMPARISON: None available at the time of this dictation. FINDINGS: Lower chest: No acute abnormality Liver: Unremarkable. No focal lesions are seen. Gallbladder and biliary tree: No calcified gallstones. Normal caliber wall. No intra- or extrahepatic biliary ductal dilation. Pancreas: Unremarkable, no focal lesions. Spleen: Unremarkable. Adrenals: Unremarkable. Kidneys and ureters: Unremarkable. Bowel: Unremarkable. Lymph nodes Retroperitoneal: Unremarkable. Mesenteric: Unremarkable. Peritoneum: Normal Vessels: Unremarkable. Abdominal wall: Unremarkable. Bones: Unremarkable. IMPRESSION: No evidence of acute abnormality. In particular, no evidence of choledocholithiasis.
--- NOTE | 2022-01-19 15:23 | Gastrointestinal Consultation ---
Date of Consultation January 19, 2022 Assessment & Plan (1) Gallstone pancreatitis: 1. LR at 250/hr. Consider decreasing fluid rate tomorrow if Hb has decreased by 2 points. 2. May have sips of water and ice chips. 3. Agree with surgical opinion - consider cholecystectomy but not urgent. 4. Recheck LFTs, lipase tomorrow. 5. No plans for ERCP. Supervising Physician Co-Signing Physician Notes Attending attestation I have seen, examined this patient, and agree with the findings and above by our mid-level provider JOSEPH Thomas, with the following additions: GS Panc without complication Cr, Respiratory status wnl IVF, Pain, Control No signs of biliary obstruction History of Present Illness Reason for Consultation: Choledocholithiasis Requesting Physician: Dr. Ward Attending Physician: Medina Ward MD History of Present Illness Ms. Siri Bazzi is a 36 yr old female pt w/o a local PCP who presented to the ED last evening for intermittent episodes of colicky upper abd pain. She recalls that this is her second severe episode with the first severe episode occurring about 3 wks ago. She has also had a lot of "indigestion," as well with similar but less severe discomfort. This episode began yesterday evening around 5PM after having eaten at [employer] for lunch. With the pain she had nausea/vomiting which has since resolved. On arrival, US w Multiple small gallstones but no gallbladder wall thickening and normal bile ducts. On arrival AST was moderately elevated at 74, but pt denies any increased intake of ETOH. Then LFTs increased today: T Bili 1.2, AST 186, ALT 83, Alk Phos 131 and lipase significantly increased to 1817. MRCP today w/o lavinia duct abnormalities. She feels much better now, currently w mild epigastric discomfort and minimally tender in the epigastric area. She is awake, alert, oriented and hemodynamically stable. Allergies Allergy/AdvReac Type Severity Reaction Status Date / Time No Known Allergies Allergy Unverified 01/19/22 09:52 Home Medications Medication Instructions Recorded Confirmed Type famotidine 20 mg tablet (Pepcid) 0 mg PO DAILY 01/19/22 01/19/22 History pantoprazole 40 mg tablet,delayed 40 mg PO DAILY 28 Days #28 tab 01/19/22 Rx release (Protonix) simethicone 125 mg capsule (Gas-X 0 mg PO BID 01/19/22 01/19/22 History Extra Strength) Patient History Medical History Epigastric abdominal pain Miscarriage within last 12 months Surgical History No significant past surgical history Family History Brother Insulinoma Other Coronary heart disease Diabetes Dyslipidemia Hypertension Kidney disease Social History Smoking Status: Never smoker Hx Substance Use: No Preferred Language: Citizen [place] Communication Ability: Effective marital status: Current Living Situation: Spouse Feels Safe at Home: Yes Review of Systems Review of Systems: ROS: Gen: Denies weakness, fevers, weight loss Eyes: No eye redness, or pain, no recent vision changes Resp: No SOB, no cough Cardio: No palpitations/irregular beats, no chest pain GI: As per HPI, otherwise (-) : Denies pain on urination Skin: No jaundice, itching or new rashes Physical Exam Constitutional: well developed and cooperative Eyes: PERRL, conjunctivae normal, anicteric sclerae ENMT: external ear and nose normal, oropharynx normal Neck: trachea midline, no thyromegaly Respiratory: normal respiratory effort, lungs clear to auscultation Cardiovascular: RRR, no murmur, no edema Gastrointestinal (Abdomen): Inspection/Auscultation: abdomen normal to inspection and normal bowel sounds; abdomen not distended and no abdominal edema Percussion/Palpation: + abdomen tender (mild epigastric tenderness. No signs of acute abdomen.) and abdomen soft; no guarding and abdomen not rigid Skin: no rashes, warm and dry normal turgor Neurologic: PERRL, EOMI, accommodation nl, no face palsy, no dysarthria awake; not confused Psychiatric: A+Ox3, euthymic affect Orientation: alert, oriented x 3 and cooperative Lymphatic: no cervical or axillary lymphadenopathy Results & Data ([facility]) Vital Signs (Past 12 Hours) Vital Signs Temp Pulse Pulse Resp BP BP Pulse Ox 01/19/22 13:33 55 L 20 115/97 97 01/19/22 12:39 74 20 154/74 H 98 01/19/22 12:32 74 20 154/74 H 98 01/19/22 12:24 74 14 154/74 H 98 01/19/22 11:00 58 L 20 108/68 100 01/19/22 09:00 46 L 12 104/64 96 01/19/22 07:58 65 15 113/67 97 01/19/22 07:30 97 01/19/22 07:11 36.3 C L 77 18 121/84 98 Pulse Ox 01/19/22 13:33 01/19/22 12:39 01/19/22 12:32 98 01/19/22 12:24 01/19/22 11:00 01/19/22 09:00 01/19/22 07:58 01/19/22 07:30 01/19/22 07:11 Laboratory Results WBC 4.5, Hb 12.9, Hct 38.3, Plts 198, Na 138, K 3.8, Cl 105, CO2 25, BUN 12, Cr 0.83. Lipase 1817. T Bili 1.2, AST 186, ALT 83, Alk Phos 131, Diagnostic Findings MRCP 01/19/22: normal pancreas, no evidence of acute abnormality. No evidence of choledocholithiasis. GB US 01/19/22: 1. Cholelithiasis. No gallbladder wall thickening. 2. Normal liver. Chest CTA 01/19/22: 1. No acute intrathoracic abnormality. No pulmonary emboli. 2. Low suspicion bilateral solid pulmonary nodules measure up to 4 mm. 3. 1.3 cm asymmetry of the medial left breast. This could be correlated with mammogram
[2022-01-19] MEDS: PANTOprazole 40 MG in SYRINGE 0 ML IV SCH (21:33)
[2022-01-20] MEDS: LACTATED RINGER'S 1,000 ML IV SCH (04:59)
[2022-01-20 07:31] LABS: Basophils # (auto) 0.01 K/uL (0-0.2); Basophils % (auto) 0.3 %; Eosinophils # (auto) 0.12 K/uL (0-0.5); Eosinophils % (auto) 3.9 %; Hematocrit (blood only) 37.8 % (37-47); Hemoglobin 12.7 g/dL (12.0-16.0); Lymphocytes # (auto) 1.36 K/uL (1.2-3.4); Lymphocytes % (auto) 44.2 %; Mean Corpuscular Hemoglobin 30.9 pg (25-34); Mean Corpuscular Hgb Conc 33.6 g/dL (32-36); Mean Platelet Volume 10.7 fL (7.4-10.4); Monocytes # (auto) 0.19 K/uL (0.11-0.59); Monocytes % (auto) 6.2 %; Neutrophils % (auto) 45.4 %; Platelet Count 170 K/uL (130-400); RDW Coefficient of Variation 11.8 % (11.5-14.5); Red Blood Count 4.11 M/uL (4.2-5.4); White Blood Count 3.08 K/uL (4.8-10.8)
[2022-01-20] MEDS: PANTOprazole 40 MG in SYRINGE 0 ML IV SCH (07:54)
[2022-01-20 08:14] LABS: Albumin Globulin Ratio 1.7 (0.9-2); Albumin Level 3.9 gm/dl (3.4-5.0); BUN Creatinine Ratio 10.8 (10-20); Bilirubin,Total 0.5 mg/dl (0.2-1.0); Calcium 9.1 mg/dl (8.5-10.1); Creatinine Clr Calc Pharmacy 103.3 ml/min; Est GFR (African American) 105.9 ml/min; Est GFR (Non-African American) 91.4 ml/min; Globulin 2.3 gm/dl (2.5-4.0); Potassium 4.1 mmol/L (3.5-5.1); Total Protein 6.2 gm/dl (6.0-8.3)
--- NOTE | 2022-01-20 11:04 | Surgery Progress Note ---
Date of Service January 20, 2022 Assessment & Plan (1) Continuous right upper quadrant pain: (2) Choledocholithiasis: (3) Pancreatitis: Plan: 36 year-old female presented to ED with sudden onset of sharp RUQ abdominal pain with associated nausea that began yesterday. Similar episode 3 weeks ago while in [place]. Did not seek medical attention in [place] as she was traveling back home and fear of needing isolation due to [facility] strict COVID laws. No fevers or chills. Imaging consistent with gallstones but no evidence of acute cholecystitis or evidence of choledocholithiasis on MRCP. 01/20/2022: no leukocytosis, afebrile t. bili normalized lfts and lipase improved abdominal pain resolved tolerated diet this am Plan: Okay from surgical standpoint for discharge advised strict low fat diet and close outpatient follow-up with surgery in [place] for elective cholecystectomy Dr. Sánchez has seen and examined pt, agrees with above. Admission and Anticipated Discharge Date Admission Date: January 19, 2022 Supervising Physician Co-Signing Physician Notes I have seen and examined the patient agree with the above assessment and plan. Her labs have improved. She has no more pain. She is not interested in surgical intervention at this time. She may be discharged to home. She will follow-up with a surgeon in [place] for elective cholecystectomy. We have advised her to stay on a strict low-fat diet. Subjective feeling great this morning tolerated low fat diet this morning for breakfast no nausea or vomiting no abdominal pain ready to go home Physical Exam Constitutional: WD/WN, vitals as above no acute distress and not ill appearing Neck: normal visual inspection and trachea midline Gastrointestinal (Abdomen): Inspection/Auscultation: abdomen normal to inspection; abdomen not distended Percussion/Palpation: abdomen soft; abdomen nontender, no guarding and abdomen not rigid Psychiatric: A+Ox3, euthymic affect Results & Data ([facility]) Vital Signs (Past 12 Hours) Vital Signs Temp Pulse Pulse Resp BP Pulse Ox 01/20/22 07:35 36.6 C 73 20 95/61 L 98 01/20/22 03:04 36.7 C 51 L 16 101/62 98 01/19/22 23:19 58 L 01/19/22 23:01 36.5 C 52 L 18 97/59 L 98 Laboratory Results 01/20/22 01/20/22 Range/Units 07:07 07:07 WBC 3.08 L (4.8-10.8) K/uL RBC 4.11 L (4.2-5.4) M/uL Hgb 12.7 (12.0-16.0) g/dL Hct 37.8 (37-47) % MCV 92.0 (80-100) fL MCH 30.9 (25-34) pg MCHC 33.6 (32-36) g/dL RDW Std Deviation 40.0 (36.4-46.3) fL RDW Coeff of Rasheed 11.8 (11.5-14.5) % Plt Count 170 (130-400) K/uL MPV 10.7 H (7.4-10.4) fL Immature Gran % (Auto) 0.0 % Neut % (Auto) 45.4 % Lymph % (Auto) 44.2 % [place] % (Auto) 6.2 % Eos % (Auto) 3.9 % Baso % (Auto) 0.3 % Neut # (Auto) 1.40 (1.4-6.5) K/uL Lymph # (Auto) 1.36 (1.2-3.4) K/uL [place] # (Auto) 0.19 (0.11-0.59) K/uL Eos # (Auto) 0.12 (0-0.5) K/uL Baso # (Auto) 0.01 (0-0.2) K/uL Immature Gran # (Auto) 0.00 (0.00-0.02) K/uL Sodium 139 (136-145) mmol/L Potassium 4.1 (3.5-5.1) mmol/L Chloride 105 (98-107) mmol/L Carbon Dioxide 30 (21-32) mmol/L Anion Gap 4 (3-11) BUN 9 (6-23) mg/dl Creatinine 0.83 (0.6-1.2) mg/dl Est Cr Clr Drug Dosing 103.3 ml/min Est GFR ( Amer) 105.9 ml/min Est GFR (Non-Af Amer) 91.4 ml/min BUN/Creatinine Ratio 10.8 (10-20) Glucose 85 (70-99(Fasting)) mg/dl Calcium 9.1 (8.5-10.1) mg/dl Magnesium 2.0 (1.7-2.4) mg/dl Total Bilirubin 0.5 D (0.2-1.0) mg/dl AST 56 H (13-39) U/L ALT 58 H (7-52) U/L Alkaline Phosphatase 130 H (34-104) U/L Total Protein 6.2 (6.0-8.3) gm/dl Albumin 3.9 (3.4-5.0) gm/dl Globulin 2.3 L (2.5-4.0) gm/dl Albumin/Globulin Ratio 1.7 (0.9-2) Lipase 122 H (11-82) U/L
--- NOTE | 2022-01-20 11:49 | Discharge Summary ---
Date of Service January 20, 2022 Admission HPI Per Admitting Provider 36 YOF with medical history of: , miscarriage. Patient is in transit on orders as spouse with her (active duty [employer]). Patient comes to the EMD today for continued nausea/vomiting and abdominal pain. Patient was evaluated in the EMD on 01/18/22 - Ct scan of abdomen and pelvis noted gallstones. She presents again with epigastric and right sided abdominal pain. Without fevers or chills since last week. Sitting with legs up as position of comfort. Patient states that this originally started while she was with nausea,vomiting and abdominal pain, she later had miscarriage. This also occurred ~ 3 weeks ago when they were getting ready to leave [facility], [place]. She states that this comes and goes and gets better after she does not eat for a couple days. Yesterday she was feeling better and went to [facility] where she had a chicken burrito bowel. After dinner she had onset of epigastric abdominal pain followed by n/v as above. Will obtain MRCP and Gastroenterology consulted. Patient will be kept NPO for evaluation for ERCP, as with her elevation of lipase and epigastric pain consistent with gallstone pancreatitis at this time. Patient has had anesthesia previously without any complications. COVID test on admission is: NEGATIVE 01/18/22 Principal Diagnosis Gallstone pancreatitis,symptomatic cholelithiasis, suspect choledocholithiasis Discharge Exam Constitutional WD/WN, vitals as above Eyes + anicteric sclerae ENMT external ear and nose normal, oropharynx normal Neck trachea midline, no thyromegaly Respiratory normal respiratory effort, lungs clear to auscultation Cardiovascular RRR, no murmur, no edema Chest (Breasts) Chest: normal inspection of chest Gastrointestinal (Abdomen) normal bowel sounds, soft, nontender, no hepatosplenomegaly Musculoskeletal Extremities: extremities normal to inspection; no cyanosis and no clubbing Skin no rashes, warm and dry Neurologic moves all extremities and awake; no focal motor deficits Psychiatric A+Ox3, euthymic affect Lymphatic no lymphedema Discharge Data Allergies Allergy/AdvReac Type Severity Reaction Status Date / Time No Known Allergies Allergy Unverified 01/19/22 09:52 Consultations 01/19/22 10:51 ED Decision to Admit Stat 05/31/22 11:34 Consult Gastroenterology Stat 01/19/22 13:08 Consult General Surgery Routine 01/20/22 11:42 Burn CD for patient Stat Ordered Studies 01/19/22 07:34 US gallbladder Stat 01/19/22 08:45 CT angio chest PE protocol Stat 01/19/22 10:45 MR MRCP Stat Hospital Course (1) Choledocholithiasis: Acute with elevated LFTs and lipase - evidence of gallstones noted on Ultrasound without gallbladder thickening- liver appears normal - Pancreas noted on ultrasound with normal echotexture- currently with elevated lipase and pain with n/v secondary to gallstone - MRCP- negative for choledocholithiasis likely representing passing of these now resulting with pancreatitis -seen b [facility] and recommends cholecystectomy but pt prefers to move to [place] tomorrow as planned and find a surgeon there to perform the surgery -was treated here with one dose of IV morphine and Zofran, IVFs, bowel rest had significant improvement/resolution of all symptoms and LFTs and lipase all trended back towards normal on day of discharge -continue low fat diet after discharge until cholecystectomy performed (2) Pancreatitis: Elevated lipase, right upper and epigastric abdominal pain with nausea and vomiting - BISAP score of 1 -mild pancreatitis - normal echotexture interpreted on Ultrasound - MRCP no evidenc eof pancreatitis - Secondary to gallstones likely -NPO, IVFs given, lipase back to almost normal now and has no pain (3) Breast mass, left: Incidentally noted-1.3 cm asymmetry of the medial left breast. This could be correlated with mammogram - Follow up with PCP at new destination for mammography and breast US discussed with patient (4) Nausea & vomiting: Secondary to # 1 - Continue Protonix 40mg and pepcid now resolved (5) Abnormal chest CT: Low suspicion bilateral solid pulmonary nodules measure up to 4 mm bilat lungs - non smoker - follow up recommended with PCP and/or PULM and possible repeat imaging once moves to [place] Total Time Total Time Spent Total Time Spent (In Minutes): 35 min Discharge Plan Discharge Items Patient Disposition: Home - Self-Care Reason For Visit: BURNING PAIN IN RIGHT SIDE Discharge Diagnosis: Gallstone pancreatitis, choledocholithiasis Condition on Discharge: Good Activity: Resume your previous activity Non-emergency contact: Primary Care Provider and Surgeon Call non-emergency contact if: you have any medication questions, your symptoms worsen, your pain is not controlled, your pain is worsening, your pain is unusual for you, your pain is concerning for you, you have a fever and your temperature is above 101 Follow-up/Referrals: PCP,NO [Primary Care Provider] - Diet: Low Fat Addtl Attending Provider Instructions: You were admitted with gallstone pancreatitis and found to have gallstones in your gallbladder. You did not have an obstruction of your biliary tract on MRI, but you likely did previously and it since passed. This could happen again and it is recommended that you have your gallbladder removed when you get to [place]. Please continue on a low fat diet until you have your gallbladder removed. If you have recurrent abdominal pain or nausea, please seek medical attention at the closest hospital. Incidentally noted, you had some small nodules in both of your lungs. This could be from a previous infection, but it is recommended that you have a repeat CT scan of your chest and follow up with a Professor Of Counseling once you move to [place]. Also incidentally noted on your CT scan of the chest was a 1.3 cm asymmetric density in your left breast. It is recommended that you also get a mammogram and a breast ultrasound of this region once you get to [place] to make sure this is not something more concerning. It was a pleasure taking care of you and I will keep you and your family in my prayers for safe travel and good health! -Medina Ward M.D. Pending Studies at Discharge: No Stand-Alone Forms: My [facility] Medications and DC Order Prescriptions: Continued pantoprazole [Protonix] 40 mg tablet,delayed release (DR/EC) 40 mg PO DAILY 28 Days Qty: 28 RF: 0 simethicone [Gas-X Extra Strength] 125 mg Capsule 0 mg PO BID RF: 0 famotidine [Pepcid] 20 mg Tablet 0 mg PO DAILY RF: 0 Discontinued acetaminophen 500 mg Tablet 1,000 mg PO Q6H PRN (Reason: Pain) RF: 0 Discharge Orders: Discharge Order (Routine); Ordered 01/20/22 Ordered By: Medina Ward Admission Data Admit Date/Time: 01/19/22 11:41 Attending Provider: Medina Ward Admit Provider: Medina Ward Primary Care Provider: PCP,NO Other Providers: Medina Ward ; Meghna Pearson ; Alysa Joseph ; Nikki Do ; Citlali Mann ; Rodri Julien ; Lisha Oliiva ; Kwabena Morillo ; John Dangelo ; Valencia Chairez ; Eliz Jha ; Janet Hernandez ; Gwendolyn Mon ; Evelyn Singh ; Ney Sánchez Coding Level of Care Code D/C DAY MANAGEMENT >30 MINS Diagnoses Choledocholithiasis K80.50 Pancreatitis K85.90 Breast mass, left N63.20 Breast mass location: unspecified quadrant Nausea & vomiting R11.[address] R93.89
--- NOTE | 2022-01-20 15:19 | Gastroenterology Progress Note ---
Date of Service January 20, 2022 Assessment & Plan (1) Pancreatitis due to biliary obstruction: Plan: No GI procedures planned. OK with DC from GI perspective. Low fat diet. Establish with a general surgeon once in [place] and consider cholecystectomy to prevent pancreatitis in the future as there as small stones on imaging. Admission and Anticipated Discharge Date Admission Date: January 19, 2022 Supervising Physician Co-Signing Physician Notes Attending attestation I have seen, examined this patient, and agree with the findings and above by our mid-level provider JOSEPH Thomas, with the following additions: doing well, gall stone panc without signs of biliary obstruction. Doing well eating and without pain Subjective 36 yr old female admitted 01/19 with gallstone pancreatitis. Denies any hx of increased ETOH intake. Tx with hydration, bowel rest. Pt felt very well this morning. Free of pain and tolerating regular consistency, low fat foods. Lipase 7->122 LFTs improved. T Bili 0.5. Review of Systems Review of Systems: ROS: Gen: Denies weakness, fevers, weight loss Eyes: No eye redness, or pain, no recent vision changes Resp: No SOB, no cough Cardio: No palpitations/irregular beats, no chest pain GI: No abdominal pain, no nausea/vomiting : Denies pain on urination Skin: No jaundice, itching or new rashes Physical Exam Constitutional: well developed and cooperative Eyes: PERRL, conjunctivae normal, anicteric sclerae Respiratory: normal respiratory effort, lungs clear to auscultation Cardiovascular: RRR, no murmur, no edema Gastrointestinal (Abdomen): normal bowel sounds, soft, nontender, no hepatosplenomegaly Skin: no rashes, warm and dry normal turgor Neurologic: PERRL, EOMI, accommodation nl, no face palsy, no dysarthria awake; not confused Psychiatric: A+Ox3, euthymic affect Orientation: alert, oriented x 3 and cooperative Results & Data ([facility]) Vital Signs (Past 12 Hours) Vital Signs Temp Pulse Pulse Pulse Resp BP Pulse Ox 01/20/22 12:44 36.6 C 55 L 75 18 117/77 99 01/20/22 11:32 36.6 C 75 18 117/77 99 01/20/22 09:00 47 L 01/20/22 07:35 36.6 C 73 20 95/61 L 98 Diagnostic Findings MRCP 01/19/22: No evidence of acute abnormality. In particular, no evidence of choledocholithiasis GB US 01/19/22: 1. Cholelithiasis. No gallbladder wall thickening. 2. Normal liver. (1) Pancreatitis due to biliary obstruction Acute pancreatitis complication: no infection or necrosis Chronicity: acute Qualified Code(s): K85.10 - Biliary acute pancreatitis without necrosis or infection
== END 2022-01-20 13:49 | disposition home or self-care (01) | DRG 444 ==
LOC: ED 07:11 → INTOOBSV 11:41 → EDINP 11:41 → 2N 18:10